=== PATIENT | female | born 1950 | race African-American/Black ===

== ENCOUNTER 2019-05-17 09:13 | Emergency (ER) | payer MEDICARE ==
[~2019-05-17] VITALS: Ht 160 cm; Wt 104.3 kg
[2019-05-17 09:22] VITALS: BP 143/74
--- NOTE | 2019-05-17 10:02 | RAD ---
Examination: 3 views of the right knee HISTORY: History of pain COMPARISON: None available FINDINGS: Moderate joint space loss identified in the medial, lateral, patellofemoral compartments. Moderate-sized osteophyte formation identified in the medial, lateral, patellofemoral compartments. No significant knee joint effusion. IMPRESSION: 1. Moderate tricompartmental degenerative changes most in the medial compartment. Electronically signed by: Cole Bear MD (05/17/2019 10:00 AM) [facility]
[2019-05-17] MEDS ORDERED: DICL100G18 TP (10:13)
[2019-05-17] MEDS ORDERED: METH4TAB2 PO (10:13)
--- NOTE | 2019-05-17 10:13 | PHYS DOC ---
Adult General Chief Complaint Chief Complaint: KNEE INJURY HPI HPI Patient is a 69 year old female who presents to the ED today complaining of mild intermittent right knee pain that began yesterday after she hyperflexed her knee getting out of a train. Patient denies falling. States the pain is worse on range of motion. Patient reports the pain is relieved on immobilization. (ANIBAL RAZA APRN) Review of Systems Review of Systems Constitutional: Denies fever or chills [] Musculoskeletal: Reports right knee pain Integument: Denies rash or skin lesions [] Neurologic: Denies headache, focal weakness or sensory changes [] All other systems were reviewed and found to be within normal limits, except as documented in this note. (ANIBAL RAZA APRN) Allergies Allergies Allergies Coded Allergies Type Severity Reaction Last Updated Verified No Known Drug Allergies 05/17/19 No (HARVEY MITCHELL DO) Physical Exam Physical Exam Constitutional: Well developed, well nourished, no acute distress, non-toxic appearance. [] Skin: Warm, dry, no erythema, no rash. [] Back: No tenderness, no CVA tenderness. [] Extremities: Right knee with no obvious deformity. No tenderness on exam, full range of motion to the right knee. +2 right pedal pulse. Cap refill less than 2 seconds to the right lower extremity. Neurologic: Alert and oriented X 3, normal motor function, normal sensory function, no focal deficits noted. [] Psychologic: Affect normal, judgement normal, mood normal. [] (ANIBAL RAZA APRN) Current Patient Data Vital Signs Vital Signs Date Time Temp Pulse Resp B/P (MAP) Pulse Ox O2 Delivery O2 Flow Rate FiO2 05/17/19 09:22 98.5 72 18 143/74 (97) 99 Room Air 98.5 (HARVEY MITCHELL DO) EKG EKG [] (ANIBAL RAZA APRN) Radiology/Procedures Radiology/Procedures []PROCEDURE: KNEE RIGHT 3V Examination: 3 views of the right knee HISTORY: History of pain COMPARISON: None available FINDINGS: Moderate joint space loss identified in the medial, lateral, patellofemoral compartments. Moderate-sized osteophyte formation identified in the medial, lateral, patellofemoral compartments. No significant knee joint effusion. IMPRESSION: 1. Moderate tricompartmental degenerative changes most in the medial compartment. Electronically signed by: Cole Bear MD (05/17/2019 10:00 AM) [facility] DICTATED and SIGNED BY: COLE BEAR MD DATE: 05/17/19 1000 (ANIBAL RAZA APRN) Course & Med Decision Making Course & Med Decision Making Pertinent Labs and Imaging studies reviewed. (See chart for details) This is a 69-year-old female patient presented to the ED today with right knee pain that began yesterday after hyperflexing the knee. Right knee x-rays interpreted by radiologist were noted for DJD otherwise no acute findings. Discharged with Voltaren. Follow-up with orthopedic doctor in 1-2 weeks. (ANIBAL RAZA APRN) Dragon Disclaimer Dragon Disclaimer This electronic medical record was generated, in whole or in part, using a voice recognition dictation system. (ANIBAL RAZA APRN) Departure Departure Impression: Primary Impression: Right knee sprain Additional Impression: Right knee DJD Disposition: HOME, SELF-CARE Condition: STABLE Referrals: DIPESH DUARTE MD (PCP) NATHANIEL COOPER MD follow up in 1-2 weeks Patient Instructions: Arthritis, Degenerative-Brief Additional Instructions: You were evaluated in the emergency room for right knee pain. Your right knee x- rays were noted for arthritis otherwise no acute findings. Please contact the provided orthopedic doctor if you do not have one and follow-up in the next 1-2 weeks. Scripts Methylprednisolone (MEDROL) 4 Mg Tab.ds.pk 1 PKG PO UD, #1 PKG Prov: ANIBAL RAZA APRN 05/17/19 Diclofenac Sodium (VOLTAREN) 100 Gm Gel..gram. 1 GM TP QID for pain for 30 Days, #1 EACH 0 Refills apply to the knee Prov: ANIBAL RAZA APRN 05/17/19 Attending Signature Attending Signature I have reviewed the PA/DELIV[employer] SAL[employer] WORKER's note and plan of care. I was available for consultation as needed during the patient's visit in the emergency department. I agree with the clinical impression, plan, and disposition. (HARVEY MITCHELL DO) Problem Qualifiers Primary Impression: Right knee sprain Encounter type: initial encounter Involved ligament of knee: unspecified ligament Qualified Codes: S83.91XA - Sprain of unspecified site of right knee, initial encounter Additional Impression: Right knee DJD Osteoarthritis type: primary Qualified Codes: M17.11 - Unilateral primary osteoarthritis, right knee ANIBAL RAZA APRN May 17, 2019 10:13 HARVEY MITCHELL DO May 17, 2019 17:42
== END 2019-05-17 10:18 | disposition home or self-care (01) ==
LOC: ER 09:13
DX: S83.91XA Sprain of unspecified site of right knee, initial encounter (principal); M17.11 Unilateral primary osteoarthritis, right knee; X50.9XXA Other and unspecified overexertion or strenuous movements or postures, initial encounter; Y93.89 Activity, other specified; Y92.89 Other specified places as the place of occurrence of the external cause; Y99.8 Other external cause status
CPT/HCPCS: 73562; 99284